=== PATIENT | female | born 1965 | race Caucasian/White ===

== ENCOUNTER → 2024-06-10 | Outpatient (CLI) | payer MEDICAID ==
[2024-06-10 15:53] LABS: Glucose 87 mg/dL (70-110)
[2024-06-10 15:54] LABS: Blood Urea Nitrogen 9.1 mg/dL (9.0-27.0); Carbon Dioxide 21.6 mmol/L (21.6-31.8); Chloride 110 mmol/L (96-109); Potassium 3.8 mmol/L (3.5-5.5); Sodium 144 mmol/L (135-145)
[2024-06-10 16:18] LABS: Basophils # (A) 0.04 X 10*3/uL (0.00-0.10); Eosinophils % (A) 2.5 %; HCT 39.7 % (37.2-46.3); HGB 13.1 g/dL (12.0-15.0); Lymphocytes # (A) 1.77 X 10*3/uL (0.90-5.00); MCH 31.6 pg (27.0-32.0); MCV 95.7 FL (80.0-97.0); Mean Platelet Volume 11.2 FL (9.5-12.2); Monocytes # (A) 0.23 X 10*3/uL (0.20-1.00); Monocytes % (A) 5.7 %; NRBC Per 100 WBC 0 X 10*3/uL (0.00-0.01); Neutrophils # (A) 1.87 X 10*3/uL (1.80-7.70); Neutrophils % (A) 46.6 %; Platelet Count 246 X 10*3/uL (140-440); RBC 4.15 X 10*6/uL (4.10-5.20); RDW 13.5 % (11.5-14.5); WBC 4.02 X 10*3/uL (4.50-10.00)
== END | disposition home or self-care (01) ==
LOC: LABPAT 10:34
PROVIDERS: ATTEND Obstetrics & Gynecology
DX: Z01.812 Encounter for preprocedural laboratory examination (principal); N81.6 Rectocele
CPT/HCPCS: 80051; 82565; 82947; 84520; 85025; 86850; 86900; 86901; 87086

== ENCOUNTER 2024-06-18 10:21 | Day surgery (SDC) | payer MEDICAID ==
--- NOTE | 2024-06-17 00:43 | HP ---
HISTORY AND PHYSICAL DATE OF SCHEDULED SURGERY: 06/18/2024 HISTORY OF PRESENT ILLNESS: The patient is a 58-year-old 6, para 1-0-5-1, who presents on referral for evaluation of symptomatic rectocele. She complains of increasing vaginal bulging over the last number of years, up to 5, but has had significantly more so over the last year. She reports some pressure and discomfort and bulging occasionally outside the vagina. She denies needing to splint in order to move her bowels and has no difficulty with moving her bowels or constipation. She is not currently sexually active, but she does wish to retain the possibility to be so in the future. Examination demonstrates no evidence of any significant cystocele or uterine prolapse. PAST MEDICAL HISTORY: Significant for arthritis, remote history of abnormal Paps, and migraine headaches. PAST SURGICAL HISTORY: Significant for tonsils and adenoids in 1971. She has had a breast biopsy, section, cholecystectomy, and colonoscopy as well. She has undergone D and C. She has had right knee arthroscopy. She has had a tubal ligation, a suburethral sling, and wrist surgery. There has apparently been no anesthetic concerns. OBSTETRICAL HISTORY: 6, para 1-0-5-1 with 1 term section and a number of spontaneous miscarriages. Method of contraception is menopause and tubal ligation. GYNECOLOGIC HISTORY: Unremarkable except as noted in history of present illness. There is no history of any infections to include STDs. FAMILY HISTORY: Noncontributory. SOCIAL HISTORY: The patient is and works as a nurse at [employer]. She is a nonsmoker and denies any significant alcohol or any other social concerns. CURRENT MEDICATIONS: 1. Cyclobenzaprine 10 mg twice daily as needed. 2. Gabapentin 300 mg at h.s. 3. Meloxicam 7.5 mg 2 tablets once daily. 4. Multivitamin daily. 5. Topamax 50 mg twice daily. 6. B12 daily. 7. Vitamin D3 daily. 8. Xanax 0.25 mg p.r.n. ALLERGIES: No known drug allergies. REVIEW OF SYSTEMS: Is confined to history of present illness. PHYSICAL EXAMINATION: VITAL SIGNS: Stable. The patient is afebrile. GENERAL: This is a well-developed, well-nourished white female, in no acute distress. HEART: Her heart has a regular rhythm and rate without murmur. LUNGS: Clear to auscultation bilaterally in all price. ABDOMEN: Nondistended, has normoactive bowel sounds, soft, nontender, without any palpable masses, hepatosplenomegaly, or hernias. EXTREMITIES: Without any cyanosis, clubbing, or edema and are nontender to palpation bilaterally. : Pelvic examination demonstrates normal external genitalia and BUS with normal vaginal mucosa and cervix. There is no cervical motion tenderness. Uterus is mid plane, atrophic in size, mobile, nontender, normal in shape. There is no significant uterine prolapse is demonstrated by speculum or palpation. There is perhaps a grade 2 cystocele present, but there is a grade 3+ rectocele present. ASSESSMENT AND PLAN: Symptomatic rectocele: There is no other significant prolapse noted in the office setting. The patient is interested in and has requested surgical repair and is aware of potential alternatives including pessary versus observation. We have opted to proceed with a posterior colporrhaphy and add the possibility of anterior colporrhaphy and possible vaginal hysterectomy if more significant prolapse is noted under anesthesia. I do not anticipate this outcome. The risks and complications were discussed at length including risk for bleeding, bleeding requiring transfusion, infection, injury to local structures, which primarily include the rectum. I have additionally plan to pre-treat her with estrogen cream intravaginally for 2 weeks prior to proceeding to the procedure in order to help in healing and developing the proper planes intravaginally. She has understood all the plans and the surgical discussions and has agreed to proceed. We have discussed options for how to proceed and she will likely end up staying in the hospital overnight by her choice. MMODL / IJN: [id number] /
[2024-06-18] MEDS: LIDOCAINE 1% (10MG/ML) FOR IV START INTRADERMA PRN (10:53)
[2024-06-18] MEDS: ONDANSETRON 4 MG/2 ML VIAL IVP PRN (10:53)
[2024-06-18] MEDS: LACTATED RINGERS 1,000 ML IV SCH ×2 (10:53→15:15)
[2024-06-18] MEDS: DEXAMETHASONE SOD PHOSPHATE 4 MG/ML 1 ML VIAL IV ONE (10:54)
[2024-06-18] MEDS: IV FLUID CONTINUATION 1,000 ML IV ONE (10:58)
[2024-06-18] MEDS ORDERED: KETOROLAC 15 MG/ML 1 ML VIAL ONE (11:58)
[2024-06-18] MEDS ORDERED: HYDROmorphone (PF) 1 MG/ML ONE (11:58)
[2024-06-18] MEDS ORDERED: fentaNYL (PF) 50 MCG/ML 2 ML AMP ONE (11:58)
[2024-06-18] MEDS ORDERED: MIDAZOLAM 2 MG/2 ML VIAL ONE (11:58)
[2024-06-18] MEDS ORDERED: LIDOCAINE 1% INJ 10MG/ML (20 ML MDV) ONE (11:58)
[2024-06-18] MEDS ORDERED: PROPOFOL 10 MG/ML 20 ML VIAL IV ONE (11:58)
[2024-06-18] MEDS ORDERED: SUCCINYLCHOLINE CHLORIDE 200 MG/10 ML VIAL IV ONE (11:58)
[2024-06-18] MEDS: VASOPRESSIN 20 UNIT/ML 1 ML VIAL SQ ONE ×2 (12:17)
[2024-06-18] MEDS: BACITRACIN ZINC 500 UNIT/GM OINT 28.4 GM TUBE TOPICAL ONE (12:20)
[2024-06-18] MEDS ORDERED: diphenhydrAMINE 50 MG/ML 1 ML VIAL IVP PRN (13:05)
[2024-06-18] MEDS ORDERED: ONDANSETRON 4 MG/2 ML VIAL IVP PRN (13:05)
[2024-06-18] MEDS ORDERED: Acetaminophen-Codeine 300-30mg TAB PO PRN (13:05)
[2024-06-18] MEDS ORDERED: SIMETHICONE 80 MG CHEWABLE PO PRN (13:05)
[2024-06-18] MEDS ORDERED: METOCLOPRAMIDE 5 MG/ML 2 ML VIAL IVP PRN (13:05)
[2024-06-18] MEDS ORDERED: IBUPROFEN 600 MG TAB PO PRN (13:05)
--- NOTE | 2024-06-18 13:15 | P.OP ---
Date of Procedure: 06/18/24 Preoperative Diagnosis: #1. Symptomatic rectocele Postoperative Diagnosis: Same plus #2. Grade 3 cystocele under anesthesia Procedure(s) Performed: #1. Anterior colporrhaphy #2. Posterior colporrhaphy Anesthesia: CODY Surgeon: Chong Graham Marine Fitter #1: Denise Nuñez Estimated Blood Loss (ml): 20 IV fluids (ml): 500 Urine output (ml): 150 Pathology: none sent Condition: stable Disposition: PACU Operative Findings: Preoperatively, examination in the office had demonstrated a grade 3 rectocele for which the patient was symptomatic. I was unable to demonstrate any significant cystocele or uterine prolapse at that time. Under anesthesia, there was a quite apparent grade 2+ to 3 cystocele present. As a result, the anterior repair procedure was included with posterior repair. Clear urine was seen throughout the case and at the end. The repair appeared to be excellent in terms of support. The uterus did not have any significant degree of prolapse and was left in situ. Description of Procedure: Patient was prepped and draped in usual fashion after general endotracheal anesthesia was administered by the anesthesiologist. Examination demonstrated a cystocele which was previously not appreciated in the office. The patient had been consented for the possibility of repair and this was undertaken. A weighted speculum was placed and the cervical vaginal mucosa grasped at its junction on the anterior side of the cervix. The cervical vaginal mucosa was infused with diluted vasopressin solution and then divided from the Allis clamps above the level of the cervix. The Allis clamps were placed more centrally and to the vesicovaginal mucosa undermined in the midline with Metzenbaum scissors and divided with Allis clamps placed along the margins. Sharp and blunt dissection was utilized to dissected the overlying mucosa from the underlying tissues. After adequate dissection had been carried out, a Cole catheter was placed with clear taras urine noted. Serial Sharon plication stitches were placed from the urethral apex of the repair using 2-0 PDS to the cervical apex. The intervening redundant vaginal mucosa was trimmed and then closed with a running locking stitch of 2-0 Vicryl from urethra to cervix. The weighted speculum was then removed. The catheter was checked and clear urine was noted. Allis clamps were placed around the hymeneal ring across the posterior aspect of the vaginal opening. A triangular wedge of skin was removed over the perineal body. The rectovaginal mucosa was then infused with diluted vasopressin solution. It was undermined in the midline again with the Metzenbaum scissors and divided placing Allis clamps along the margins. Once again, sharp and blunt dissection was utilized to sweep the overlying mucosa from the underlying tissues. Serial Sharon plication stitches were taken from the top of the vaginal apex using 2-0 PDS to the opening of the vagina. Once again, the redundant vaginal mucosa was trimmed and discarded. The vaginal mucosal defect was then closed with a running locking stitch of 2-0 Vicryl with a typical perineorrhaphy repair at the end. The vagina was then packed with half-inch iodophor gauze covered with bacitracin ointment. Estimated blood loss for the case was approximately 20 mL. There were no complications. All sponge, instrument, and needle counts were correct. The patient tolerated the procedure well and proceeded to the recovery room in stable condition.
[2024-06-18] MEDS: HYDROmorphone 0.5 MG/0.5 ML SYRINGE IVP PRN (13:35)
[2024-06-18] MEDS: SCOPOLAMINE 1 MG/72 HR PATCH TRANSDERM ONE (15:15)
[2024-06-18] MEDS: droPERidol 5 MG/2 ML VIAL IVP ONE (15:15)
[2024-06-18] MEDS: Acetaminophen-Codeine 300-30mg TAB PO PRN (16:15)
[2024-06-18] MEDS: KETOROLAC 15 MG/ML 1 ML VIAL IVP PRN (20:02)
[2024-06-18] MEDS: SENNOSIDES-DOCUSATE SODIUM 1 EACH TAB PO SCH (20:08)
[2024-06-19 02:37] VITALS: RESP 16
[2024-06-19 06:01] LABS: Basophils % (A) 0 %; Eosinophils % (A) 1 %; HCT 36.5 % (34.0-46.0); HGB 12.1 gm/dL (11.4-16.0); Lymphocytes # (A) 2.1 k/uL (1.0-4.8); Lymphocytes % (A) 27 %; MCH 31.6 pg (25.0-35.0); MCHC 33.1 g/dL (31.0-37.0); MCV 95.3 fL (80.0-100.0); Mean Platelet Volume 7.4; Monocytes # (A) 0.5 k/uL (0-1.0); Monocytes % (A) 6 %; Neutrophils # (A) 4.9 k/uL (1.3-7.7); Neutrophils % (A) 64 %; Platelet Count 254 k/uL (150-450); RBC 3.83 m/uL (3.80-5.40); WBC 7.6 k/uL (3.8-10.6)
[2024-06-19 08:14] VITALS: BP 107/62; PULSE 74; TEMP 98.1
--- NOTE | 2024-06-19 12:37 | P.DS ---
Providers Date of admission: 06/19/24 Expected date of discharge: 06/19/24 Attending physician: Chong Graham Primary care physician: [facility] Course: Ms. Dickson is a 58 year old POD#1 s/p anterior and posterior colporrhaphy. She d id have increased bleeding overnight saturating a few pads throughout the night. This morning her mejia catheter and vaginal packing were removed. Bleeding is now just a light spotting, within normal limits.She reports minimal lochia, passing flatus, voiding without difficulty, ambulating, and eating/drinking without nausea or vomiting. She denies chest pain, shortness of breathing, fevers, or chills overnight. She denies pain or swelling in the legs. Postoperative restrictions are reviewed with the patient including pelvic rest for 6 weeks, no lifting heavier than 15 pounds for 6 weeks. The patient is encouraged to call the office if she experiences any heavy bleeding, foul- smelling discharge, breast complaints, or any if she has any other concerns. She will follow up in the office with Dr. Graham in 2 weeks for postoperative exam. She plans to take OTC NSAIDs and Tylenol as needed for pain. All questions are answered. Assessment: 58 year old POD#1 s/p anterior and posterior colporrhaphy Patient Condition at Discharge: Good Plan - Discharge Summary Discharge Rx Participant: No New Discharge Prescriptions: No Action Cholecalciferol [Vitamin D3 (25 Mcg = 1000 Iu)] 25 mcg PO DAILY Topiramate [Topamax] 50 mg PO BID Meloxicam [Mobic] 7.5 mg PO BID ALPRAZolam [Xanax] 0.25 mg PO DAILY PRN PRN Reason: Anxiety Gabapentin [Neurontin] 300 mg PO TID Cyclobenzaprine [Flexeril] 10 mg PO TID Discharge Medication List ALPRAZolam [Xanax] 0.25 mg PO DAILY PRN 06/15/24 [History] Cholecalciferol [Vitamin D3 (25 Mcg = 1000 Iu)] 25 mcg PO DAILY 06/15/24 [History] Cyclobenzaprine [Flexeril] 10 mg PO TID 06/15/24 [History] Gabapentin [Neurontin] 300 mg PO TID 06/15/24 [History] Meloxicam [Mobic] 7.5 mg PO BID 06/15/24 [History] Topiramate [Topamax] 50 mg PO BID 06/15/24 [History] Follow up Appointment(s)/Referral(s): Chong Graham MD [STAFF PHYSICIAN] - 6 Weeks Activity/Diet/Wound Care/Special Instructions: Postoperative Instructions 1. No heavy lifting or straining (exercising) until after 6 week checkup. 2. Do not resume sexual relations for 6 weeks or longer if uncomfortable. 3. Keep abdominal incision clean and dry: You may wear a dressing if more comfortable. 4. Keep any areas repaired with stitches clean and dry. 5. Call the office, , within the next week to make appointment for your 2 week checkup 6. Report any of the following occurrences to the doctor promptly: a. Heavy, excessive bleeding b. Chills, fever c. Burning or frequency of urination d. Pain or redness around the incisions Discharge Disposition: HOME SELF-CARE
[2024-06-19] MEDS ORDERED: ACETAMINOPHEN TAB 325 MG TAB PO PRN (13:07)
== END 2024-06-19 12:55 | disposition home or self-care (01) ==
LOC: OR 10:21 → 4FBP 12:56 → OR 06-19 12:55
PROVIDERS: ATTEND Obstetrics & Gynecology
DX: N81.3 Complete uterovaginal prolapse (principal); G43.909 Migraine, unspecified, not intractable, without status migrainosus; Z79.899 Other long term (current) drug therapy; Z79.1 Long term (current) use of non-steroidal anti-inflammatories (NSAID)
CPT/HCPCS: 85025; 57260; J1100; J0690; J2405; J1885 ×2; J1170